=== PATIENT | male | born 1960 | race Caucasian/White ===

== ENCOUNTER → 2017-05-20 | Outpatient (CLI) | payer OTHER ==
--- NOTE | 2017-05-21 08:23 | KCIC ---
MRI Lumbar Spine without contrast History: Low back pain, left radiculopathy Technique: Multiplanar, multi sequential noncontrast MR imaging was performed of the lumbar spine. Contrast: None Comparison: None Findings: Most inferior fully formed intervertebral disc space is considered L5-S1. Lumbar vertebral body stature is preserved. There is grade 1 anterior spondylolisthesis at L4-5 due to bilateral L4 spondylolysis. There is fairly advanced degenerative disc disease at L4-5 associated prominent degenerative endplate change. There is mild disc desiccation T12-L1 through L2-3. Conus terminates at L1. Minimal edema of the anterior, inferior corners of T11 and T12 is probably reactive/degenerative in etiology. L1-L2: There is negligible disc osteophyte complex. Spinal canal and the neural foramina are adequate. L2-L3: There is minimal disc osteophyte complex. There is mild facet degenerative change and buckling of the ligamentum flavum. Spinal canal is adequate. There is minimal narrowing of the neural foramina bilaterally. L3-L4: There is mild to moderate right and mild left facet hypertrophic change. There is mild buckling of the ligamentum flavum. Spinal canal and left neural foramen are adequate, very minimal narrowing of the right neural foramen. L4-L5: There is mild to moderate facet degenerative change. There is mild partial uncovering of the posterior aspect of the disc due to spondylolisthesis with superimposed disc osteophyte complex and bulge, greater in the inferior left neural foramen. There is severe narrowing of the neural foramina bilaterally greater on the left with impingement of the exiting L4 nerve roots greater on the left. Spinal canal is adequate. L5-S1: Spinal canal and neural foramina are adequate. Impression: 1. Most inferior fully formed intervertebral disc space is considered L5-S1. There is grade 1 anterior spondylolisthesis at L4-5 due to L4 spondylolysis bilaterally. There is advanced degenerative disc disease at L4-5. There is severe L4-5 neural foramina compromise bilaterally greater on the left, impingement of the exiting L4 nerve roots. Electronically signed by: Adeel Euceda MD (05/21/2017 8:19 AM) [facility]
== END | disposition home or self-care (01) ==
LOC: KCIC MRI 16:21
PROVIDERS: ATTEND Family Medicine
DX: M51.16 Intervertebral disc disorders with radiculopathy, lumbar region (principal); M43.16 Spondylolisthesis, lumbar region
CPT/HCPCS: 72148

== ENCOUNTER 2019-02-17 05:11 | Emergency (ER) | payer OTHER ==
[~2019-02-17] VITALS: Ht 188 cm; Wt 140.6 kg
[2019-02-17 05:30] LABS: BASO % 0 % (0-3); EOS % 1 % (0-3); HEMATOCRIT 45.6 % (39.0-53.0); HEMOGLOBIN 15.9 g/dL (13.0-17.5); LYMPH # 0.8 x10^3/uL (1.0-4.8); LYMPH % 8 % (24-48); MEAN CORPUSCULAR HEMOGLOBIN 32 pg (25-35); MEAN CORPUSCULAR HGB CONC 35 g/dL (31-37); MEAN CORPUSCULAR VOLUME 92 fL (79-100); MONO # 0.7 x10^3/uL (0.0-1.1); MONO % 7 % (0-9); NEUT # 8.6 x10^3/uL (1.8-7.7); NEUT % 84 % (31-73); PLATELET COUNT 205 x10^3/uL (140-400); RED BLOOD COUNT 4.96 x10^6/uL (4.30-5.70); RED CELL DISTRIBUTION WIDTH 12.8 % (11.5-14.5); WHITE BLOOD COUNT 10.2 x10^3/uL (4.0-11.0)
[2019-02-17 05:36] LABS: CALCIUM 9.7 mg/dL (8.5-10.1); CREATININE 1.1 mg/dL (0.7-1.3); GFR 69.2; POTASSIUM 3.6 mmol/L (3.5-5.1)
--- NOTE | 2019-02-17 05:41 | PHYS DOC ---
Past Medical History Past Medical History: Hypertension, Other Additional Past Medical Histor: chronic pain (TEAGAN BOLAÑOS Jr., DO) Past Surgical History: Other Additional Past Surgical Histo: hernia x2, left pinky nail removed (TEAGAN BOLAÑOS Jr., DO) Alcohol Use: None Drug Use: None (TEAGAN BOLAÑOS Jr., DO) Adult General Chief Complaint Chief Complaint: ABDOMINAL PAIN HPI HPI Patient is a 58-year-old male who presents with complaint of acute onset of left flank pain that started this morning at about 2:30. Patient states the pain was a 10 out of 10 originally but he took some tramadol and now his pain is about a 4 out of 10. He states that he had an episode of nausea but no vomiting. He states he was diaphoretic. Patient states his denies pack on his back and that made his symptoms worse. He denies any chest pain or shortness of breath. He also denies any fever.[] (TEAGAN BOLAOÑS Jr., DO) Review of Systems Review of Systems Constitutional: Denies fever or chills [] Respiratory: Denies cough or shortness of breath [] Cardiovascular: No additional information not addressed in HPI [] GI: Complains of left flank and lower abdominal pain along with nausea. Denies vomiting or diarrhea [] : Denies dysuria or hematuria [] Musculoskeletal: Complains of left lower back/flank pain [] All other systems were reviewed and found to be within normal limits, except as documented in this note. (TEAGAN BOLAÑOS Jr., DO) Current Medications Current Medications Current Medications Medications (Trade) Dose Ordered Sig/Roldan Start Time Stop Time Status Last Admin Dose Admin Hydromorphone HCl (Dilaudid) 0.5 mg PRN Q15MIN PRN 02/17/19 05:30 02/17/19 08:51 DC 02/17/19 05:50 0.5 MG Ketorolac Tromethamine (Toradol 30mg Vial) 30 mg 1X ONCE 02/17/19 06:00 02/17/19 06:01 DC 02/17/19 05:50 30 MG Ondansetron HCl (Zofran) 4 mg 1X ONCE 02/17/19 06:00 02/17/19 06:01 DC 02/17/19 05:50 4 MG Sodium Chloride 1,000 ml @ 1,000 mls/hr Q1H 02/17/19 06:00 02/17/19 06:59 DC 02/17/19 05:50 1,000 MLS/HR Tamsulosin HCl (Flomax) 0.4 mg 1X ONCE 02/17/19 06:30 02/17/19 06:31 DC 02/17/19 06:22 0.4 MG (CARL MELÉNDEZ MD) Allergies Allergies Allergies Coded Allergies Type Severity Reaction Last Updated Verified Penicillins Allergy Intermediate 02/17/19 Yes Tetanus Vaccines and Toxoid Allergy Intermediate 02/17/19 Yes (CARL MELÉNDEZ MD) Physical Exam Physical Exam Constitutional: Well developed, well nourished, no acute distress, non-toxic appearance. [] HENT: Normocephalic, atraumatic, bilateral external ears normal, oropharynx moist, no oral exudates, nose normal. [] Eyes: PERRLA, EOMI, conjunctiva normal, no discharge. [] Neck: Normal range of motion, no tenderness, supple, no stridor. [] Cardiovascular: Regular rate and rhythm[] Lungs & Thorax: Bilateral breath sounds clear to auscultation [] Abdomen: Bowel sounds normal, soft, with left lower quadrant tenderness. [] Skin: Warm, dry, no erythema, no rash. [] Extremities: No tenderness, no cyanosis, no clubbing, ROM intact, no edema. [] Neurologic: Alert and oriented X 3, no focal deficits noted. [] (TEAGAN BOLAÑOS Jr. DO) Current Patient Data Vital Signs Vital Signs Date Time Temp Pulse Resp B/P (MAP) Pulse Ox O2 Delivery O2 Flow Rate FiO2 02/17/19 08:00 64 16 115/62 (79) 96 Room Air 02/17/19 05:12 97.4 97.4 (CARL MELÉNDEZ MD) Lab Values Laboratory Tests Test 02/17/19 05:15 02/17/19 07:01 White Blood Count 10.2 x10^3/uL (4.0-11.0) Red Blood Count 4.96 x10^6/uL (4.30-5.70) Hemoglobin 15.9 g/dL (13.0-17.5) Hematocrit 45.6 % (39.0-53.0) Mean Corpuscular Volume 92 fL (79-100) Mean Corpuscular Hemoglobin 32 pg (25-35) Mean Corpuscular Hemoglobin Concent 35 g/dL (31-37) Red Cell Distribution Width 12.8 % (11.5-14.5) Platelet Count 205 x10^3/uL (140-400) Neutrophils (%) (Auto) 84 % (31-73) H Lymphocytes (%) (Auto) 8 % (24-48) L Monocytes (%) (Auto) 7 % (0-9) Eosinophils (%) (Auto) 1 % (0-3) Basophils (%) (Auto) 0 % (0-3) Neutrophils # (Auto) 8.6 x10^3/uL (1.8-7.7) H Lymphocytes # (Auto) 0.8 x10^3/uL (1.0-4.8) L Monocytes # (Auto) 0.7 x10^3/uL (0.0-1.1) Eosinophils # (Auto) 0.0 x10^3/uL (0.0-0.7) Basophils # (Auto) 0.0 x10^3/uL (0.0-0.2) Sodium Level 141 mmol/L (136-145) Potassium Level 3.6 mmol/L (3.5-5.1) Chloride Level 102 mmol/L (98-107) Carbon Dioxide Level 31 mmol/L (21-32) Anion Gap 8 (6-14) Blood Urea Nitrogen 24 mg/dL (8-26) Creatinine 1.1 mg/dL (0.7-1.3) Estimated GFR (Cockcroft-Gault) 69.2 BUN/Creatinine Ratio 22 (6-20) H Glucose Level 126 mg/dL (70-99) H Calcium Level 9.7 mg/dL (8.5-10.1) Total Bilirubin 0.4 mg/dL (0.2-1.0) Aspartate Amino Transferase (AST) 38 U/L (15-37) H Alanine Aminotransferase (ALT) 59 U/L (16-63) Alkaline Phosphatase 88 U/L (46-116) Total Protein 7.9 g/dL (6.4-8.2) Albumin 4.2 g/dL (3.4-5.0) Albumin/Globulin Ratio 1.1 (1.0-1.7) Lipase 191 U/L (73-393) Urine Collection Type Unknown Urine Color Yellow Urine Clarity Clear Urine pH 7.0 Urine Specific [place] 1.020 Urine Protein Negative mg/dL (NEG-TRACE) Urine Glucose (UA) Negative mg/dL (NEG) Urine Ketones (Stick) Negative mg/dL (NEG) Urine Blood Large (NEG) Urine Nitrite Negative (NEG) Urine Bilirubin Negative (NEG) Urine Urobilinogen Dipstick 1.0 mg/dL (0.2 mg/dL) Urine Leukocyte Esterase Negative (NEG) Urine RBC >40 /HPF (0-2) Urine WBC 1-4 /HPF (0-4) Urine Squamous Epithelial Cells Few /LPF Urine Bacteria 0 /HPF (0-FEW) Urine Mucus Mod /LPF Laboratory Tests 02/17/19 05:15 Laboratory Tests 02/17/19 05:15 (CARL MELÉNDEZ MD) EKG EKG [] (TEAGAN BOLAÑOS Jr., DO) Radiology/Procedures Radiology/Procedures [] (TEAGAN BOLAÑOS Jr., DO) Radiology/Procedures [facility] [address] [place] [address] IMAGING REPORT Signed PATIENT: KARAN KHANNA ACCOUNT: [id number] : 1960 LOCATION: ER AGE: 58 SEX: M EXAM STATUS: REG ER ORD. PHYSICIAN: TEAGAN BOLAÑOS Jr., DO REASON: left flank pain PROCEDURE: CT ABDOMEN PELVIS WO CONTRAST CT ABDOMEN PELVIS WO CONTRAST INDICATION: Left flank pain EXAM: Noncontrast CT of the abdomen and pelvis. Coronal and sagittal reformatted images were performed. PQRS compliance statement: One or more of the following individualized dose reduction techniques were utilized for this examination: 1. Automated exposure control 2. Adjustment of the mA and/or kV according to patient size 3. Use of iterative reconstruction technique COMPARISON: None FINDINGS: No free air, free fluid, or fluid collection. Lower chest: The visualized lower lungs are aerated. No pleural or pericardial effusion. ABDOMEN: Liver: Calcified hepatic granulomas. No focal hepatic lesion. Gallbladder and biliary: Normal gallbladder without radiopaque stone. Normal caliber bile ducts. Spleen: Calcified splenic granulomas. Pancreas: The noncontrast pancreas is homogeneous in attenuation without peripancreatic inflammatory changes. Adrenal glands: Normal adrenal glands. Kidneys and ureters: Mild left hydroureteronephrosis. Calculus at the left ureterovesicular junction measuring 5 x 3 mm. Asymmetric left perinephric stranding, likely reactive. Additional punctate 1 to 2 mm bilateral nonobstructive renal calculi. GI tract: The stomach is decompressed and poorly evaluated. Normal caliber small bowel and colon. Normal appendix. Vascular structures: Aneurysmal infrarenal abdominal aorta measures 3.0 cm in maximum diameter. Mild aortoiliac atherosclerotic disease. Lymph nodes: No lymphadenopathy in the abdomen or pelvis. PELVIS: Genitourinary system: Normal bladder. Normal prostate gland and seminal vesicles. SKELETAL STRUCTURES AND SOFT TISSUES: Multilevel degenerative changes of the spine. 7 mm anterolisthesis at L4-5 due to bilateral pars defects. IMPRESSION: 1. Mild left hydroureteronephrosis secondary to a 5 x 3 mm calculus at the left ureterovesicular junction. Additional punctate bilateral 1-2 mm nonobstructive renal calculi. 2. Infrarenal abdominal aortic aneurysm measuring 3.0 cm in diameter. Electronically signed by: Adeel Shahid MD (02/17/2019 5:45 AM) [facility] [place] (CARL MELÉNDEZ MD) Course & Med Decision Making Course & Med Decision Making Pertinent Labs and Imaging studies reviewed. (See chart for details) Patient moved to room upon arrival was evaluated by ER medical staff after which an IV was established and blood work was drawn. Patient also sent for CT of the abdomen and pelvis without contrast for stone study. At this time, workup is p ending and patient is being signed out to oncoming ER physician, Dr. Meléndez, at 6:00 AM. (TEAGAN BOLAÑOS Jr. DO) Course & Med Decision Making Patient's care transferred to nc at 0600. Patient was sleeping without problem after having Toradol and Dilaudid. CT showed 5 mm stone in left UV junction with mild hydronephrosis. Also it showed 3 cm asymptomatic abdominal aneurysm. Labs was unremarkable. Patient tolerated oral intake. Plan discharge patient home with diagnose of renal colic and ureterolithiasis. Patient was advised to increase fluid intake, strain all of the urine, increase activity and follow up with on-call urologist. (CARL MELÉNDEZ MD) Dragon Disclaimer Dragon Disclaimer This electronic medical record was generated, in whole or in part, using a voice recognition dictation system. (TEAGAN BOLAÑOS Jr. DO) Departure Departure Impression: Primary Impression: Renal colic on left side Additional Impressions: Ureterolithiasis Hematuria Aortic aneurysm, abdominal Disposition: HOME, SELF-CARE Condition: IMPROVED Referrals: MICHAEL DWYER DO (PCP) AVIS SIMON MD Patient Instructions: Diet for Kidney Stones, Kidney Stones Additional Instructions: Drink plenty of liquids Follow-up with your primary care physician in 3-5 days Return to ER if not getting better Follow-up with on-call urology doctor in one or 2 days Strain all of your urine Scripts Ondansetron Hcl (ZOFRAN) 4 Mg Tablet 1 TAB PO PRN Q6-8HRS for nausea, #12 TAB Prov: CARL MELÉNDEZ MD 02/17/19 Hydrocodone/Apap 5-325 (NORCO 5-325 TABLET) 1 Each Tablet 1 TAB PO PRN Q6HRS PRN for PAIN, #15 TAB 0 Refills Prov: CARL MELÉNDEZ MD 02/17/19 Ibuprofen (IBUPROFEN) 800 Mg Tablet 800 MG PO PRN Q8HRS PRN for INFLAMMATION, #20 TAB Prov: CARL MELÉNDEZ MD 02/17/19 Tamsulosin Hcl (FLOMAX) 0.4 Mg Cap.er.24h 1 CAP PO DAILY, #14 CAP 0 Refills Prov: CARL MELÉNDEZ MD 02/17/19 Problem Qualifiers Additional Impressions: Hematuria Hematuria type: unspecified type Qualified Codes: R31.9 - Hematuria, unspecified Aortic aneurysm, abdominal Presence of rupture: without rupture Qualified Codes: I71.4 - Abdominal aortic aneurysm, without rupture TEAGAN BOLAÑOS Jr., DO Feb 17, 2019 05:41 CARL MELÉNDEZ MD Feb 17, 2019 07:59
[2019-02-17 05:42] LABS: ALBUMIN 4.2 g/dL (3.4-5.0); ALBUMIN/GLOBULIN RATIO 1.1 (1.0-1.7); TOTAL BILIRUBIN 0.4 mg/dL (0.2-1.0); TOTAL PROTEIN 7.9 g/dL (6.4-8.2)
--- NOTE | 2019-02-17 05:47 | RAD ---
CT ABDOMEN PELVIS WO CONTRAST INDICATION: Left flank pain EXAM: Noncontrast CT of the abdomen and pelvis. Coronal and sagittal reformatted images were performed. PQRS compliance statement: One or more of the following individualized dose reduction techniques were utilized for this examination: 1. Automated exposure control 2. Adjustment of the mA and/or kV according to patient size 3. Use of iterative reconstruction technique COMPARISON: None FINDINGS: No free air, free fluid, or fluid collection. Lower chest: The visualized lower lungs are aerated. No pleural or pericardial effusion. ABDOMEN: Liver: Calcified hepatic granulomas. No focal hepatic lesion. Gallbladder and biliary: Normal gallbladder without radiopaque stone. Normal caliber bile ducts. Spleen: Calcified splenic granulomas. Pancreas: The noncontrast pancreas is homogeneous in attenuation without peripancreatic inflammatory changes. Adrenal glands: Normal adrenal glands. Kidneys and ureters: Mild left hydroureteronephrosis. Calculus at the left ureterovesicular junction measuring 5 x 3 mm. Asymmetric left perinephric stranding, likely reactive. Additional punctate 1 to 2 mm bilateral nonobstructive renal calculi. GI tract: The stomach is decompressed and poorly evaluated. Normal caliber small bowel and colon. Normal appendix. Vascular structures: Aneurysmal infrarenal abdominal aorta measures 3.0 cm in maximum diameter. Mild aortoiliac atherosclerotic disease. Lymph nodes: No lymphadenopathy in the abdomen or pelvis. PELVIS: Genitourinary system: Normal bladder. Normal prostate gland and seminal vesicles. SKELETAL STRUCTURES AND SOFT TISSUES: Multilevel degenerative changes of the spine. 7 mm anterolisthesis at L4-5 due to bilateral pars defects. IMPRESSION: 1. Mild left hydroureteronephrosis secondary to a 5 x 3 mm calculus at the left ureterovesicular junction. Additional punctate bilateral 1-2 mm nonobstructive renal calculi. 2. Infrarenal abdominal aortic aneurysm measuring 3.0 cm in diameter. Electronically signed by: Adeel Shahid MD (02/17/2019 5:45 AM) [facility]
[2019-02-17] MEDS: ONDANSETRON PF 4 MG/2 ML VIAL. IV ONE (05:48)
[2019-02-17] MEDS: HYDROmorphone 2 MG/ML VIAL IV/SQ PRN (05:49)
[2019-02-17] MEDS: KETOROLAC 30 MG/ML VIAL. IV ONE (05:50)
[2019-02-17] MEDS: IV NORMAL SALINE 1000ML BAG 1,000 ML IV SCH (05:50)
[2019-02-17] MEDS: TAMSULOSIN 0.4 MG CAP.ER.24H. PO ONE (06:22)
[2019-02-17 07:11] LABS: BILIRUBIN,URINE NEGATIVE (NEG); CLARITY,URINE CLEAR; COLOR,URINE YELLOW; NITRITE,URINE NEGATIVE (NEG); PROTEIN,URINE NEGATIVE (NEG-TRACE)
[2019-02-17 07:44] LABS: RBC,URINE >40 /HPF (0-2); SQUAMOUS EPITHELIAL CELL,UR FEW /LPF
[2019-02-17 07:45] LABS: BACTERIA,URINE 0 /HPF (0-FEW)
[2019-02-17] MEDS ORDERED: IBUP-1060 PO (07:59)
[2019-02-17] MEDS ORDERED: HYDR-3164 PO (07:59)
[2019-02-17] MEDS ORDERED: ONDA4TAB7 PO (07:59)
[2019-02-17] MEDS ORDERED: TAMS0.4C97 PO (07:59)
[2019-02-17 08:00] VITALS: BP 115/62
== END 2019-02-17 08:51 | disposition home or self-care (01) ==
LOC: ER 05:11
DX: N13.2 Hydronephrosis with renal and ureteral calculous obstruction (principal); R11.0 Nausea; I71.4 Abdominal aortic aneurysm, without rupture; I10 Essential (primary) hypertension; G89.29 Other chronic pain; Z88.0 Allergy status to penicillin; Z88.7 Allergy status to serum and vaccine
CPT/HCPCS: 36415; 74176; 80053; 81001; 83690; 85025; 96374; 96375; 99285; J1170; J1885; J2405; J7030

== ENCOUNTER → 2019-10-09 | Outpatient (CLI) | payer OTHER ==
[~2019-10-09] MED LIST: HYDR-3164 PO; IBUP-1060 PO; IOHEXOL 350 MG/ML 100 ML VIAL. IV ONE; ONDA4TAB7 PO; TAMS0.4C97 PO
[2019-10-09 08:40] LABS: GFR 77.3
--- NOTE | 2019-10-09 09:32 | RAD ---
CT ANGIOGRAPHY ABD AND PELVIS History: Abdominal aortic aneurysm Comparison: None. Technique: After administration of intravenous contrast, helical CT of the abdomen and pelvis was performed from the lung bases through the ischial tuberosities. Coronal and sagittal reconstructions were obtained. MIP and 3-D reconstructions were obtained. 90 mL of Omnipaque 350 were used. One or more of the following dose reduction techniques were utilized: Automated exposure control (AEC), Adjustment of mA and/or kV according to patient size, Use of iterative reconstruction technique such as ASiR, CT scan done according to ALARA and image gently/image wisely Findings: Calcified pulmonary granulomas. Calcified mediastinal and hilar lymph nodes consistent with remote granulomatous disease. Coronary artery atherosclerotic disease. Calcified hepatic and splenic granulomas. The liver, gallbladder, pancreas, spleen, and bilateral adrenal glands are otherwise normal. Symmetric renal enhancement. There are a couple punctate bilateral 1 to 2 mm nonobstructive renal calculi. There is no hydronephrosis. The visualized loops of small bowel are normal. The visualized loops of large bowel are normal. There is no evidence of bowel obstruction. Appendix is normal. Stable fusiform aneurysmal dilatation of the infrarenal abdominal aorta measuring 3.0 x 3.0 cm. Mild aortoiliac atherosclerotic disease. There is no free fluid. There is no mesenteric or retroperitoneal adenopathy. Urinary bladder is normal. No pelvic free fluid. There is no pelvic or inguinal adenopathy. Degenerative changes of the spine. Partial sacralization of L5 with right pseudoarthrosis. 7 mm anterolisthesis at L4-5 due to bilateral pars defects. IMPRESSION: 1. Stable fusiform aneurysmal dilatation of the infrarenal abdominal aorta measuring 3 cm. 2. Coronary artery atherosclerotic disease. 3. Punctate bilateral nonobstructive renal calculi. Electronically signed by: Adeel Shahid MD (10/09/2019 9:30 AM) [id number]
== END | disposition home or self-care (01) ==
LOC: CT 07:37
PROVIDERS: ATTEND Internal Medicine Cardiovascular Disease
DX: I25.10 Atherosclerotic heart disease of native coronary artery without angina pectoris (principal); J84.10 Pulmonary fibrosis, unspecified; N20.0 Calculus of kidney; I71.9 Aortic aneurysm of unspecified site, without rupture
CPT/HCPCS: 36415; 74174; 82565; 84520; Q9967